=== PATIENT | female | born 1970 | race Caucasian/White ===

== ENCOUNTER 2016-11-04 18:40 | Emergency (ER) | payer BC | END 2016-11-04 20:04 | disposition home or self-care (01) | LOC: BURERS 18:40 | DX: M54.2 Cervicalgia (principal); I10 Essential (primary) hypertension; F17.210 Nicotine dependence, cigarettes, uncomplicated; Z79.899 Other long term (current) drug therapy; Z85.820 Personal history of malignant melanoma of skin; Z98.890 Other specified postprocedural states | CPT/HCPCS: 99283 ==